=== PATIENT | female | born 1965 | race African-American/Black ===

== ENCOUNTER 2016-08-20 00:28 | Inpatient (IN) | payer BC, MEDICAID ==
[~2016-08-20] VITALS: Ht 172.7 cm; Wt 78.6 kg
[~2016-08-20 00:28] MED LIST: LISI-658 PO
[2016-08-20] MEDS ORDERED: NITROGLYCERIN 0.4 MG/TAB BOTTLE SL ONE (01:00)
[2016-08-20] MEDS ORDERED: ASPIRIN 325 MG TABLET PO ONE (01:00)
[2016-08-20] MEDS ORDERED: TOPI50TA PO (01:11)
[2016-08-20] MEDS ORDERED: ASPI81TA2 PO (01:11)
[2016-08-20 01:18] LABS: BASOPHILS % (AUTO) 0.4 % (0.0-2.0); EOSINOPHILS # (AUTO) 0.1 /CMM (0.0-0.7); EOSINOPHILS % (AUTO) 2.2 % (0.0-6.0); HEMATOCRIT 36 % (33-45); HEMOGLOBIN 11.9 g/dL (11.5-14.8); LYMPHOCYTES # (AUTO) 3.2 /CMM (0.8-4.8); LYMPHOCYTES % (AUTO) 48.7 % (20.0-44.0); MEAN CORPUSCULAR HEMOGLOBIN 30 PG (26.0-33.0); MEAN CORPUSCULAR HGB CONC 33 g/dl (31.0-36.0); MEAN CORPUSCULAR VOLUME 90 fL (82-100); MONOCYTES # (AUTO) 0.4 /CMM (0.1-1.30); MONOCYTES % (AUTO) 5.5 % (2.0-12.0); NEUTROPHILS # (AUTO) 2.8 /CMM (1.8-8.9); NEUTROPHILS % (AUTO) 43.2 % (43.0-81.0); PLATELET COUNT (AUTO) 295 /CMM (150-450); RDW COEFFICIENT OF VARIATION 13.3 (11.5-15.0); RED BLOOD CELL COUNT(AUTO) 3.96 MIL/uL (4.0-5.2); WHITE BLOOD COUNT (AUTO) 6.5 K/uL (4.3-11.0)
[2016-08-20 01:37] LABS: D-DIMER 0.56 mg/L(FEU (0.17-0.50); INR 0.92 (0.87-1.13); PROTHROMBIN TIME 9.8 SECS (9.5-12.7)
[2016-08-20 01:39] LABS: CALCIUM, SERUM 8.7 mg/dL (8.5-10.1); CARBON DIOXIDE 31 mmol/L (21-32); CHLORIDE 107 mmol/L (98-107); CREATININE 0.8 mg/dL (0.6-1.3); GLUCOSE 109 mg/dL (74-106); POTASSIUM 3.8 mmol/L (3.5-5.1); SODIUM SERUM 144 mmol/L (136-145); UREA NITROGEN, BLOOD 21 mg/dL (7-18)
[2016-08-20] MEDS ORDERED: NITROGLYCERIN 0.4 MG/TAB BOTTLE ONE (01:46)
[2016-08-20] MEDS ORDERED: ASPIRIN 325 MG TABLET ONE (01:46)
[2016-08-20 01:49] LABS: TROPONIN I < 0.017 ng/mL (0.00-0.056)
[2016-08-20] MEDS ORDERED: CT SWABBABLE VALVE TRANS SET 1 EA INFUS.SET MC ONE (01:51)
[2016-08-20] MEDS ORDERED: IV NS 0.9% 250 ML IV ONE (01:51)
[2016-08-20] MEDS ORDERED: IOHEXOL-350 100 ML VIAL IV ONE (01:51)
[2016-08-20] MEDS ORDERED: ACETAMINOPHEN 325 MG TABLET PO ONE (04:30)
[2016-08-20] MEDS ORDERED: ACETAMINOPHEN ES 500 MG TABLET ONE (04:42)
[2016-08-20 04:50] VITALS: BP 133/87
[2016-08-20 05:00] VITALS: BP 133/87
[2016-08-20] MEDS ORDERED: IV NS 0.9% 1,000 ML IV PRN (05:12)
[2016-08-20] MEDS ORDERED: IV NS 0.9% 1,000 ML ONE (05:17)
[2016-08-20] MEDS ORDERED: IV SET PRIMARY PUMP SET 1 EA INFUS.SET MC ONE (05:18)
[2016-08-20] MEDS ORDERED: ZOLPIDEM TARTRATE 5 MG TABLET PO PRN (05:30)
[2016-08-20] MEDS ORDERED: HYDROCODONE/APAP 5/325MG 1 EACH TABLET PO PRN (05:30)
[2016-08-20] MEDS ORDERED: MAGNESIUM HYDROXIDE 30 ML UDC PO PRN (05:30)
[2016-08-20] MEDS ORDERED: Z GUARD REMEDY 2 OZ OINT TP PRN (05:30)
[2016-08-20] MEDS ORDERED: ACETAMINOPHEN 325 MG TABLET PO PRN (05:30)
[2016-08-20] MEDS ORDERED: ONDANSETRON HCL/PF 4 MG/2 ML VIAL IVP PRN (05:30)
[2016-08-20] MEDS ORDERED: MAG HYDROX/AL HYDROX/SIMETH 30 ML UDC PO PRN (05:30)
[2016-08-20] MEDS ORDERED: MORPHINE SULFATE INJ 2 MG/ML DISP.SYRIN ONE (05:36)
[2016-08-20] MEDS: MORPHINE SULFATE INJ 2 MG/ML DISP.SYRIN IV PRN ×3 (05:49→15:48)
[2016-08-20] MEDS ORDERED: PANTOPRAZOLE 40 MG TABLET.DR PO SCH (07:30)
[2016-08-20 08:00] VITALS: BP 123/75
[2016-08-20] MEDS ORDERED: ASPIRIN 81 MG TAB.CHEW PO SCH (09:00)
[2016-08-20 12:00] VITALS: BP 111/75
[2016-08-20 16:00] VITALS: BP_SYST 119; BP_SYST 134; BP_DIAS 72; BP_DIAS 81
[2016-08-20] MEDS ORDERED: ATORVASTATIN 40 MG TABLET PO SCH (22:00)
== END 2016-08-20 16:50 | disposition home or self-care (01) | DRG 950 ==
LOC: ER 00:32 → TELE 04:04
PROVIDERS: ADMIT Internal Medicine; ATTEND Internal Medicine
DX: T85.848A Pain due to other internal prosthetic devices, implants and grafts, initial encounter (principal); F41.9 Anxiety disorder, unspecified; G89.29 Other chronic pain; I10 Essential (primary) hypertension; K21.9 Gastro-esophageal reflux disease without esophagitis; Z86.73 Personal history of transient ischemic attack (TIA), and cerebral infarction without residual deficits; Z98.51 Tubal ligation status; Y83.9 Surgical procedure, unspecified as the cause of abnormal reaction of the patient, or of later complication, without mention of misadventure at the time of the procedure; Y92.009 Unspecified place in unspecified non-institutional (private) residence as the place of occurrence of the external cause; K58.9 Irritable bowel syndrome, unspecified; E86.9 Volume depletion, unspecified; R79.89 Other specified abnormal findings of blood chemistry; T85.898A Other specified complication of other internal prosthetic devices, implants and grafts, initial encounter; R07.89 Other chest pain
CPT/HCPCS: 36415; 71010-TC; 80048-TC; 84484-TC; 85025-TC; 85378-TC; 85730-TC; 87081-TC; 93307-TC; A4606; J2270; J2405; J7030; J7050; Q9967; Z7610

== ENCOUNTER 2017-01-28 10:46 | Inpatient (IN) | payer BC, MEDICAID ==
[~2017-01-28] VITALS: Ht 172.7 cm; Wt 79.4 kg
[~2017-01-28 10:46] MED LIST changes: +ASPI-1169 PO; +TOPI50TA PO
--- NOTE | 2017-01-28 10:50 | NUR ---
BIB RA 78 FROM HOME, CHEST PAIN X 2 HRS MARKETING PROJECT LEAD, NTG SPRAY X2 AND ASA 162 GIVEN MARKETING PROJECT LEAD. A/OX 4. BREATHING EVEN AND UNLABORED. NO SOB. SKIN WARM AND DRY. VITALS STABLE. SAFETY AND COMFORT MEASURES IN PLACE. AWAITING MD ORDERS.
[2017-01-28] MEDS ORDERED: ASPIRIN 81 MG TAB.CHEW ONE (10:59)
[2017-01-28] MEDS ORDERED: NITROGLYCERIN PACKET 1 GM PACKET ONE (10:59)
[2017-01-28] MEDS ORDERED: ASPIRIN 81 MG TAB.CHEW PO ONE (11:00)
[2017-01-28] MEDS ORDERED: NITROGLYCERIN PACKET 1 GM PACKET TD ONE (11:00)
--- NOTE | 2017-01-28 11:09 | NUR ---
YARN EXAMINER SKEINS AT BEDSIDE FOR BLOOD DRAW
[2017-01-28 11:15] LABS: BASOPHILS % (AUTO) 0.7 % (0.0-2.0); EOSINOPHILS # (AUTO) 0.1 /CMM (0.0-0.7); EOSINOPHILS % (AUTO) 1.4 % (0.0-6.0); HEMATOCRIT 39 % (33-45); HEMOGLOBIN 12.8 g/dL (11.5-14.8); MEAN CORPUSCULAR HEMOGLOBIN 29 PG (26.0-33.0); MEAN CORPUSCULAR HGB CONC 32 g/dl (31.0-36.0); MEAN CORPUSCULAR VOLUME 89 fL (82-100); MONOCYTES # (AUTO) 0.3 /CMM (0.1-1.30); MONOCYTES % (AUTO) 4.1 % (2.0-12.0); NEUTROPHILS # (AUTO) 3.9 /CMM (1.8-8.9); NEUTROPHILS % (AUTO) 61.8 % (43.0-81.0); PLATELET COUNT (AUTO) 341 /CMM (150-450); RDW COEFFICIENT OF VARIATION 12.7 (11.5-15.0); RED BLOOD CELL COUNT(AUTO) 4.44 MIL/uL (4.0-5.2); WHITE BLOOD COUNT (AUTO) 6.3 K/uL (4.3-11.0)
[2017-01-28 11:24] LABS: CALCIUM, SERUM 9.2 mg/dL (8.5-10.1); CARBON DIOXIDE 29 mmol/L (21-32); CHLORIDE 105 mmol/L (98-107); CREATININE 1.1 mg/dL (0.6-1.3); GLUCOSE 110 mg/dL (74-106); POTASSIUM 4.2 mmol/L (3.5-5.1); SODIUM SERUM 141 mmol/L (136-145); UREA NITROGEN, BLOOD 22 mg/dL (7-18)
[2017-01-28 11:30] LABS: ALANINE AMINOTRANSFERASE 20 U/L (12-78); ALBUMIN 3.9 g/dL (3.4-5.0); ALKALINE PHOSPHATASE 96 U/L (46-116); ASPARTATE AMINOTRANSFERASE 17 U/L (15-37); BILIRUBIN,DIRECT 0.1 mg/dL (0.0-0.2); BILIRUBIN,TOTAL 0.3 mg/dL (0.2-1.0); TOTAL PROTEIN, SERUM 7.4 g/dL (6.4-8.2)
[2017-01-28 11:31] LABS: INR 0.93 (0.87-1.13); PROTHROMBIN TIME 9.7 SECS (9.5-12.7)
[2017-01-28 11:32] LABS: TROPONIN I < 0.017 ng/mL (0.00-0.056)
[2017-01-28] MEDS ORDERED: MORPHINE SULFATE INJ 2 MG/ML DISP.SYRIN ONE (11:34)
--- NOTE | 2017-01-28 11:41 | NUR ---
PANEL ON-CALL PAGED
[2017-01-28] MEDS ORDERED: OXYC-133 PO (11:43)
[2017-01-28] MEDS ORDERED: ZOLP10TA2 PO (11:43)
[2017-01-28] MEDS ORDERED: ONDANSETRON HCL/PF 4 MG/2 ML VIAL IVP ONE (12:00)
[2017-01-28] MEDS ORDERED: MORPHINE SULFATE INJ 2 MG/ML DISP.SYRIN IV ONE (12:00)
--- NOTE | 2017-01-28 12:19 | NUR ---
REPORT GIVEN TO EDWAR
[2017-01-28 12:45] VITALS: BP 120/82
--- NOTE | 2017-01-28 13:00 | NUR ---
SCRIBING MACHINE OPERATOR PATIENT ADMITTED FROM E.R. DEPT, A/OX4, STILL COMPLAINING OF CHEST PAIN. TELE MONITOR SHOWS NSR 75. INFORMED DR. RIVERA PATIENT STILL HAVING CHEST PAIN AND IS REQUESTING FOR DILAUDID, AND NORCO IS THE ONLY PRN SHE HAS. PER MD, NO NEW ORDER. PATIENT MADE AWARE AND UPSET.
[2017-01-28] MEDS ORDERED: HYDROCODONE/APAP 5/325MG 1 EACH TABLET PO PRN (13:30)
[2017-01-28] MEDS ORDERED: MAG HYDROX/AL HYDROX/SIMETH 30 ML UDC PO PRN (13:30)
[2017-01-28] MEDS ORDERED: ONDANSETRON HCL/PF 4 MG/2 ML VIAL IVP PRN (13:30)
[2017-01-28] MEDS ORDERED: ACETAMINOPHEN 325 MG TABLET PO PRN (13:30)
[2017-01-28] MEDS ORDERED: Z GUARD REMEDY 2 OZ OINT TP PRN (13:30)
[2017-01-28] MEDS ORDERED: ZOLPIDEM TARTRATE 5 MG TABLET PO PRN (13:30)
[2017-01-28] MEDS ORDERED: MAGNESIUM HYDROXIDE 30 ML UDC PO PRN (13:30)
[2017-01-28] MEDS: IV NS 0.9% 1,000 ML IV PRN (14:26)
[2017-01-28] MEDS: ENOXAPARIN SODIUM 40 MG/0.4 ML DISP.SYRIN SQ SCH (14:27)
[2017-01-28] MEDS ORDERED: KEY,NONCONTROL,TO KEEP IN PYXI 1 EA MC ONE (14:50)
[2017-01-28] MEDS ORDERED: SIMETHICONE SUSP 40 MG/0.6 ML BOTTLE PO PRN (15:00)
--- NOTE | 2017-01-28 15:01 | NUR ---
RN NOTES BLACK FOR CUTTER GRIND TOOL TECHNICIAN PULLED OUT ACCIDENTALLY ON THIS PATIENT'S NAME. IT SHOULD HAVE BEEN [phone].
--- NOTE | 2017-01-28 15:30 | NUR ---
APOLINAR MARTINEZ NOTES PATIENT SEEN BY DR. RIVERA AND RECEIVED NEW ORDERS. ORDER NOTED AND CARRIED OUT. PATIENT COMPLAINING OF LEFT FACIAL NUMBNESS TO DR. RIVERA. EXPLAINED TREATMENT AND MEDICATIONS REGIMEN, PATIENT VERBALIZED UNDERSTANDING. SKIN ASSESSMENT COMPLETED, SKIN DRY AND INTACT. Addendum: 01/28/17 at 1714 by EDWAR CASANOVA RN CORRECTION: MARINE HABITAT RESOURCE SPECIALIST NOTES
[2017-01-28] MEDS: FAMOTIDINE/PF INJ 20 MG/2 ML VIAL IV SCH ×2 (15:50→21:57)
[2017-01-28 16:00] VITALS: BP 126/76
[2017-01-28] MEDS ORDERED: LORAZEPAM 0.5 MG TABLET PO PRN (17:00)
--- NOTE | 2017-01-28 17:14 | NUR ---
EMERGENCY COMMUNICATIONS DISPATCHER NOTES PATIENT REQUESTING FOR ATIVAN FOR ANXIETY. RECEIVED ORDER FOR ATIVAN 0.5MG PRN, PATIENT MADE AWARE AND OFFERED ATIVAN 0.5MG, PACKET OPENED BUT REFUSED MEDICATION. DR. RIVERA MADE AWARE AND CHANGED ORDER TO ATIVAN 1MG PO Q6HR PRN. ORDER NOTED AND CARRIED OUT.
[2017-01-28] MEDS: LORAZEPAM 1 MG TABLET PO PRN (17:43)
--- NOTE | 2017-01-28 19:05 | NUR ---
MIX MAKER NOTES PATIENT APPEARS TO BE GOING THROUGH SOME PERSONAL PROBLEM, SHE WAS ON THE PHONE AND CRYING, PER PATIENT, A FAMILY FRIEND CLOSE TO HER IS DYING. ASKED IF SHE WANTS TO SPEAK TO A NATURAL REMEDY CONSULTANT BUT PATIENT REFUSED. DR. RIVERA MADE AWARE. PATIENT IS IN NO DISTRESS, CHEST PAIN IMPROVED. ON IVF INFUSING AND TOLERATING WELL, ATE DINNER. DUE MEDS GIVEN ORDERED. ALL NEEDS ATTENDED AND MET, CALL LIGHT WITHIN REACH, WILL ENDORSE TO ELECTRIC VEHICLE ELECTRICIAN FOR QUOC.
--- NOTE | 2017-01-28 19:30 | NUR ---
CUSTOMER SERVICE TECHNICIAN NOTES RECEIVED ON BED A/O X4,CLAIMED SHE'S IN A LOT OF PAIN,BREATHING REGULAR,NOT IN ANY FORM OF DISTRESS.PRESENT IVF INFUSING WELL ON LEFT AC,SITE PATENT.WITH NITRO PASTE ON HER CHEST,BUT STILL COMPLAINING OF CHEST PAIN.PER CHARGE NURSE,PATIENT HAS HX OF MRSA NARES,WAS TRANSFERRED TO [facility] FOR PRECAUTION.SR 80 ON TELE MONITOR.CALL LIGHT IN REACH,NEEDS ANTICIPATED.
[2017-01-28 20:00] VITALS: BP 119/63
[2017-01-28] MEDS: HYDROCODONE/APAP 10/325MG 1 EA TABLET PO PRN (20:17)
--- NOTE | 2017-01-28 20:17 | NUR ---
WELDING MACHINE OPERATOR ARC NOTES PAIN MANAGEMENT C/O CHEST PAIN,MEDICATED WITH NORCO 10/325MG,1 TAB PO ORDERED.
[2017-01-28 20:28] VITALS: BP 119/63
[2017-01-29] VITALS (7 sets, daily range): BP systolic 97–123; BP diastolic 55–72
--- NOTE | 2017-01-29 01:06 | NUR ---
POCKET BUILDER NOTES C/O INSOMNIA,AMBIEN 5MG PO GIVEN
--- NOTE | 2017-01-29 01:06 | NUR ---
CROSSING TENDER NOTES C/O HEADACHE,TYLENOL 650MG PO GIVEN.
[2017-01-29] MEDS: IV NS 0.9% 1,000 ML IV PRN (05:13)
--- NOTE | 2017-01-29 06:44 | NUR ---
FITTING ROOM SUPERVISOR NOTES PAIN MANAGEMENT EFFECTIVE.PER LUKE DAS TO COLLECT URINE FOR U/A.IN NO ACUTE DISTRESS.CALL LIGHT IN REACH,NEEDS ATTENDED.WILL ENDORSE TO DAY NURSE FOR QUOC.
--- NOTE | 2017-01-29 06:57 | NUR ---
COOK FROZEN DESSERT NOTES FEELING BLOATED,MAALOX 30ML PO GIVEN ORDERED.
[2017-01-29] MEDS: HYDROCODONE/APAP 10/325MG 1 EA TABLET PO PRN ×2 (06:58→15:27)
--- NOTE | 2017-01-29 06:58 | NUR ---
BUNDLE COLLECTOR NOTES PAIN MANAGEMENT C/O MIDDLE CHEST PAIN 7/10 ON PAIN SCALE,NORCO 10/325MG,1 TAB PO GIVEN ORDERED
[2017-01-29 07:16] LABS: BASOPHILS % (AUTO) 0.6 % (0.0-2.0); EOSINOPHILS # (AUTO) 0.1 /CMM (0.0-0.7); EOSINOPHILS % (AUTO) 1.7 % (0.0-6.0); HEMATOCRIT 35 % (33-45); HEMOGLOBIN 11.7 g/dL (11.5-14.8); LYMPHOCYTES # (AUTO) 2.6 /CMM (0.8-4.8); LYMPHOCYTES % (AUTO) 39.1 % (20.0-44.0); MEAN CORPUSCULAR HEMOGLOBIN 30 PG (26.0-33.0); MEAN CORPUSCULAR HGB CONC 33 g/dl (31.0-36.0); MEAN CORPUSCULAR VOLUME 89 fL (82-100); MONOCYTES # (AUTO) 0.3 /CMM (0.1-1.30); MONOCYTES % (AUTO) 4.6 % (2.0-12.0); NEUTROPHILS # (AUTO) 3.6 /CMM (1.8-8.9); PLATELET COUNT (AUTO) 286 /CMM (150-450); RDW COEFFICIENT OF VARIATION 13.8 (11.5-15.0); RED BLOOD CELL COUNT(AUTO) 3.96 MIL/uL (4.0-5.2); WHITE BLOOD COUNT (AUTO) 6.7 K/uL (4.3-11.0)
[2017-01-29 07:54] LABS: CALCIUM, SERUM 8.8 mg/dL (8.5-10.1); CREATININE 0.9 mg/dL (0.6-1.3); MAGNESIUM 1.9 mg/dL (1.8-2.4); PHOSPHORUS 3.7 mg/dL (2.5-4.9); POTASSIUM 4.2 mmol/L (3.5-5.1)
--- NOTE | 2017-01-29 08:24 | NUR ---
PHOTOCOPIER TECHNICIAN OPENING NOTE RECEIVED BEDSIDE SBAR REPORT. PATIENT IS A/O X4, ASLEEP, EASILY AWAKEN. DENIES PAIN/DISCOMFORT AT HIS TIME. CHEST IS RISING EQUALLY, BILATERALLY. NO SIGN OF SOB/RESPIRATORY DISTRESS. PATIENT IS IN BED, BED IS LOCKED IN LOWEST POSITION, SIDE RAILS UP X2. CALL LIGHT WITHIN REACH. PATIENT IS EDUCATED TO USE THE CALL LIGHT TO CALL FOR ASSISTANCE VIA TEACH BACK METHOD. VERBALIZED UNDERSTANDING. ALL NEEDS ARE MET AT THIS TIME. WILL CONTINUE TO ASESS/MONITOR THROUGHOUT THE SHIFT.
[2017-01-29] MEDS ORDERED: LISINOPRIL (20MG) 20 MG TABLET PO SCH (09:00)
[2017-01-29] MEDS: FAMOTIDINE/PF INJ 20 MG/2 ML VIAL IV SCH (09:08)
--- NOTE | 2017-01-29 09:15 | NUR ---
MS RN NOTE PATIENT HAS BEEN TRANSFERRED TO [facility] BY DR ASTORGA.
[2017-01-29] MEDS: ENOXAPARIN SODIUM 40 MG/0.4 ML DISP.SYRIN SQ SCH (09:22)
[2017-01-29] MEDS ORDERED: INDOMETHACIN 25 MG CAPSULE PO SCH (09:30)
--- NOTE | 2017-01-29 09:37 | NUR ---
MS RN NOTE URINE SAMPLE OBTAINED AND LABELED. INFORMED CYNTHIA AT LAB TO LOG CUT OFF SAWYER THE SPECIMEN.
[2017-01-29] MEDS ORDERED: REGADENOSON 0.4 MG/5 ML DISP.SYRIN IVP ONE (10:00)
--- NOTE | 2017-01-29 11:42 | NUR ---
MS RN NOTE PATIENT LEFT THE UNIT VIA WHEELCHAIR IN STABLE CONDITION GOING TO NUCLEAR MEDICINE FOR STRESS TEST ACCOMPANIED BY THE THECH. LEFT ANTECUBITAL IV IS INTACT AND PATENT. VS WNL.
--- NOTE | 2017-01-29 12:55 | NUR ---
MS RN NOTE PATIENT IS BACK TO THE UNIT. IV IS INTACT AND PATENT. PATIENT WAS ADVICED TO EAT. FOOD TRAY AT THE BEDSIDE. PATIENT ASSISTED TO BED. BED IS LOCKED IN LOWEST POSITION, SIDE RAILS UP X2. CALL LIGHT WITHIN REACH.
--- NOTE | 2017-01-29 14:37 | NUR ---
NM:CARDIAC STRESS TEST WAS COMPLETED. TECH:RB.
--- NOTE | 2017-01-29 15:15 | NUR ---
MS RN NOTE DR. RIVERA AT THE BEDSIDE. PATIENT COMPLAINS OF PAIN RATING 9/10 IN LOW BACK AND L/BREAST. PATIENT REPORTS ANXIETY. WILL ADMINISTER ANXIOLYTIC AND ANALGESIC PRESCRIBED. DR. RIVERA NOTIFIED.
--- NOTE | 2017-01-29 15:18 | NUR ---
MS DISCHARGE ORDER NOTE DISCHARGE ORDER RECEIVED. PATIENT IS INFORMED. DISCHARGE PLANING DISCUSSED. DISCHARGE TEACHING/EDUCATION PROVIDED VIA TEACH BACK METHOD.
[2017-01-29] MEDS: LORAZEPAM 1 MG TABLET PO PRN (15:27)
--- NOTE | 2017-01-29 16:57 | NUR ---
MS ASSISTANT CASE MANAGER ORDER IV REMOVED WITH THE TIP INTACT. OCLUSIVE DRESSING APPLIED. DISCHARGE PAPERWORK GIVEN TO PATIENT. DISCHARGE EDUCATION PROVIDED. ALL BELONGINGS ARE ACCOUNTED FOR. PATIENT IS TO BE LEAVING THE UNIT VIA PRIVATE CAR ACCOMPANIED BY THE DAUGHTER. PATIENT IS STABLE. PAIN/ANXIETY CONTROLLED WITH RECENTLY PRESCRIBED MEDICATIONS. ALL QUESTIONS ANSWERED. ALL NEEDS MET. Addendum: 01/29/17 at 1700 by CARLOS ANGELES RN DISCHARGE NOTE*
--- NOTE | 2017-01-29 17:28 | NUR ---
MS HYDROGEOLOGIST NOTE PATIENT LEFT THE UNIT IN A STABLE CONDITION. PATIENT ACCOMPANIED BY THE RN TO THE CAR. PATIENT LEFT THE HOSPITAL VIA PRIVATE CAR IN STABLE CONDITION.
== END 2017-01-29 17:30 | disposition home or self-care (01) | DRG 920 ==
LOC: ER 10:48 → TELE 12:33 → MED 01-29 09:20
PROVIDERS: ADMIT Internal Medicine; ATTEND Internal Medicine
DX: T85.848A Pain due to other internal prosthetic devices, implants and grafts, initial encounter (principal); I69.354 Hemiplegia and hemiparesis following cerebral infarction affecting left non-dominant side; I25.10 Atherosclerotic heart disease of native coronary artery without angina pectoris; E78.5 Hyperlipidemia, unspecified; K21.9 Gastro-esophageal reflux disease without esophagitis; Z98.51 Tubal ligation status; Z82.49 Family history of ischemic heart disease and other diseases of the circulatory system; Z79.82 Long term (current) use of aspirin; F41.9 Anxiety disorder, unspecified; Z79.899 Other long term (current) drug therapy; G43.909 Migraine, unspecified, not intractable, without status migrainosus; I10 Essential (primary) hypertension; Y83.8 Other surgical procedures as the cause of abnormal reaction of the patient, or of later complication, without mention of misadventure at the time of the procedure; Y92.009 Unspecified place in unspecified non-institutional (private) residence as the place of occurrence of the external cause
CPT/HCPCS: 36415; 70450-TC; 71010-TC; 71250-TC; 80048-TC; 80061-TC; 80076-TC; 83735-TC; 84100-TC; 84484-TC; 85025-TC; 85652-TC; 85730-TC; 87081-TC; 93307-TC; 93970-TC; A9502; J1650; J2270; J2785; J3490; J7030

== ENCOUNTER 2018-11-07 16:33 | Emergency (ER) | payer BC, MEDICAID ==
[~2018-11-07] VITALS: Ht 175.3 cm; Wt 78.9 kg
[~2018-11-07 16:33] MED LIST changes: -ASPI-1169 PO; +OXYC-133 PO; -TOPI50TA PO; +ZOLP10TA2 PO
[2018-11-07 16:56] VITALS: BP 125/72
[2018-11-07] MEDS ORDERED: ALBUTEROL FS 2.5 MG/3 ML VIAL.NEB NEB ONE (17:30)
[2018-11-07] MEDS ORDERED: IPRATROPIUM NEB FS 0.5 MG/2.5 ML AMPUL.NEB NEB ONE (17:30)
[2018-11-07] MEDS ORDERED: ACETAMINOPHEN 325 MG TABLET PO ONE (17:30)
[2018-11-07] MEDS ORDERED: ALBUTEROL FS 2.5 MG/3 ML VIAL.NEB ONE (18:05)
[2018-11-07] MEDS ORDERED: IPRATROPIUM NEB FS 0.5 MG/2.5 ML AMPUL.NEB ONE (18:05)
[2018-11-07] MEDS ORDERED: ACETAMINOPHEN 325 MG TABLET ONE (18:16)
[2018-11-07] MEDS ORDERED: DEXAMETHASONE SOD PHOSPHATE 10 MG/ML VIAL ONE (18:43)
[2018-11-07] MEDS ORDERED: DEXAMETHASONE SOD PHOSPHATE 4 MG/ML VIAL IM ONE (19:00)
== END 2018-11-07 19:04 | disposition home or self-care (01) ==
LOC: ER 16:34
DX: J45.909 Unspecified asthma, uncomplicated (principal); I10 Essential (primary) hypertension; F41.9 Anxiety disorder, unspecified; M54.5 Low back pain; K58.9 Irritable bowel syndrome, unspecified; R49.0 Dysphonia; Z78.0 Asymptomatic menopausal state; Z98.51 Tubal ligation status; Z86.73 Personal history of transient ischemic attack (TIA), and cerebral infarction without residual deficits
CPT/HCPCS: 71045; 93005; 94640; 96372; 99283; J1100

== ENCOUNTER 2024-09-12 13:44 | Emergency (ER) | payer BC, MEDICAID ==
[~2024-09-12] VITALS: Ht 172.7 cm; Wt 71.2 kg
[2024-09-12 16:42] LABS: PLATELET COUNT (AUTO) 293 K/uL (150-450); RED BLOOD CELL COUNT(AUTO) 4.41 MIL/uL (4.0-5.2); RED CELL DISTRIBUTION WIDTH 13.6 % (11.5-15.0); WHITE BLOOD COUNT (AUTO) 6.2 K/uL (4.3-11.0)
[2024-09-12 16:49] LABS: CALCIUM, SERUM 9.0 mg/dL (8.5-10.1); CREATININE 0.8 mg/dL (0.6-1.3); SODIUM SERUM 141.0 mmol/L (136-145); UREA NITROGEN, BLOOD 11.0 mg/dL (7-18)
[2024-09-12] MEDS ORDERED: MECL-182 PO (17:01)
[2024-09-12] MEDS ORDERED: KETOROLAC TROMETHAMINE 15 MG/ML VIAL ONE (17:10)
[2024-09-12] MEDS ORDERED: ACETAMINOPHEN ES 500 MG TABLET ONE (17:10)
[2024-09-12] MEDS: KETOROLAC TROMETHAMINE 15 MG/ML VIAL IM ONE (17:25)
[2024-09-12] MEDS: ACETAMINOPHEN ES 500 MG TABLET PO ONE (17:26)
[2024-09-12 17:27] VITALS: BP 123/68; TEMP 98.8; O2SAT 99
[2024-09-12] MEDS ORDERED: IBUPROFEN 600 MG TABLET PO ONE (17:30)
== END 2024-09-12 17:27 | disposition home or self-care (01) ==
LOC: ER 13:44
DX: I83.891 Varicose veins of right lower extremity with other complications (principal); R42 Dizziness and giddiness; I10 Essential (primary) hypertension; F17.200 Nicotine dependence, unspecified, uncomplicated; K58.9 Irritable bowel syndrome, unspecified; Z79.899 Other long term (current) drug therapy; Z86.73 Personal history of transient ischemic attack (TIA), and cerebral infarction without residual deficits; Z98.51 Tubal ligation status; X58.XXXA Exposure to other specified factors, initial encounter; Y93.89 Activity, other specified; Y92.89 Other specified places as the place of occurrence of the external cause; Y99.8 Other external cause status
CPT/HCPCS: 99284; 96372; 93005; 85025; 80048; 36415; J1885; A6403